=== PATIENT | female | born 1990 | race Hispanic/Latino ===

== ENCOUNTER 2017-08-31 02:52 | Emergency (ER) | payer OTHER ==
--- NOTE | 2017-08-31 03:10 | ED PDOC ---
HPI: Psych/Substance Abuse Time Seen by Provider: 08/31/17 03:00 Chief Complaint (Nursing): Psychiatric Evaluation Chief Complaint (Provider): crisis eval History Per: Patient, EMS History/Exam Limitations: intoxication Additional History Per: Patient, EMS Additional Complaint(s): 26 y/o female brought in by EMS for crisis eval. Patient states after drinking at a bar she went home and used a kitchen knife to cut her wrists because she was "feeling sorry" for herself. Patient states she does not want to . Patient admits to drinking "a lot". Denies suicidal/homicidal ideations, hallucinations, extremity numbness/weakness. Last tetanus vaccine unknown. Past Medical History Reviewed: Historical Data, Nursing Documentation, Vital Signs Vital Signs: Last Vital Signs Temp 98 F 08/31/17 02:58 Pulse 131 H 08/31/17 02:58 Resp 18 08/31/17 02:58 BP 159/136 H 08/31/17 02:58 Pulse Ox 100 08/31/17 02:58 - Medical History PMH: No Chronic Diseases - Surgical History Surgical History: No Surg Hx - Family History Family History: States: No Known Family Hx - Living Arrangements Living Arrangements: Alone - Social History Alcohol: Social - Allergies Allergies/Adverse Reactions: Allergies Allergy/AdvReac Type Severity Reaction Status Date / Time No Known Allergies Allergy Verified 08/31/17 02:58 Review of Systems ROS Statement: Except As Marked, All Systems Reviewed And Found Negative Psych: Positive for: Depression Physical Exam - Reviewed Nursing Documentation Reviewed: Yes Vital Signs Reviewed: Yes - Physical Exam Appears: Positive for: Well, Non-toxic, Uncomfortable (tearful) Head Exam: Positive for: ATRAUMATIC, NORMAL INSPECTION, NORMOCEPHALIC Skin: Positive for: Normal Color Eye Exam: Positive for: Normal appearance ENT: Positive for: Normal ENT Inspection Cardiovascular/Chest: Positive for: Regular Rate, Rhythm Respiratory: Positive for: Normal Breath Sounds Pulses-Radial (L): 2+ Pulses-Radial (R): 2+ Back: Positive for: Normal Inspection Extremity: Positive for: Normal ROM, Capillary Refill, Other (multiple superficial abrasions bilateral volar forearms). Negative for: Tenderness, Deformity Neurologic/Psych: Positive for: Alert, Oriented, Other (+aob) - Laboratory Results Result Diagrams: 08/31/17 03:24 08/31/17 03:24 - ECG O2 Sat by Pulse Oximetry: 100 - Progress ED Course And Treament: labs, urine, crisis eval, 1:1 Abrasions cleaned with normal saline, bacitracin applied. Adacel ordered Disposition - Clinical Impression Clinical Impression: Alcohol intoxication, Self-harm - Disposition Disposition: Transfer of Care Disposition Time: 06:00 Condition: STABLE Patient Signed Over To: Jose Ramirez Handoff Comments: pending sobriety, crisis eval
[2017-08-31 03:31] LABS: BASO # 0.1 K/uL (0.0-0.2); BASO % 0.8 % (0.0-2.0); EOS # 0.1 K/uL (0.0-0.7); EOS % 2.2 % (0.0-4.0); HEMATOCRIT 38.5 % (34.0-47.0); LYMPH % 45.6 % (20.0-40.0); MEAN CELL VOLUME 95.4 fl (81.0-99.0); MEAN CORPUSCULAR HEMOGLOBIN 32.2 pg (27.0-31.0); MEAN CORPUSCULAR HGB CONC 33.7 g/dL (33.0-37.0); MEAN PLATELET VOLUME 7.4 fl (7.2-11.7); MONO # 0.3 K/uL (0.0-0.8); MONO % 5.2 % (0.0-10.0); NEUT % 46.2 % (50.0-75.0); NRBC % 0.1 % (0.0-0.0); RED CELL DISTRIBUTION WIDTH 12.8 % (11.5-14.5); WHITE BLOOD COUNT 6.6 K/uL (4.8-10.8)
[2017-08-31 03:56] LABS: ALB/GLOB RATIO 1.5 (1.0-2.1); ALCOHOL SERUM 299 mg/dl (0-10); ALKALINE PHOSPHATASE 54 U/L (38-126); ALT/SGPT 32 U/L (9-52); AST/SGOT 28 U/L (14-36); BILIRUBIN,TOTAL 0.3 mg/dl (0.2-1.3); BLOOD UREA NITROGEN 7 mg/dl (7-17); CALCIUM 9.7 mg/dL (8.4-10.2); CARBON DIOXIDE 24 mmol/L (22-30); CHLORIDE 111 mmol/L (98-107); GFR AFRICAN-AMERICAN > 60; GLUCOSE,RANDOM 138 mg/dL (65-105); POTASSIUM 5.2 MMOL/L (3.6-5.0); SODIUM 148 mmol/l (132-148); TOTAL PROTEIN 7.6 G/DL (6.3-8.2)
[2017-08-31 04:58] LABS: URINE COLOR COLORLESS (YELLOW); URINE GLUCOSE (UA) NEG (Normal)
[2017-08-31 04:59] LABS: RBC URINE 1 /hpf (0-3); URINE BILIRUBIN NEGATIVE (NEGATIVE); URINE BLOOD NEGATIVE (NEGATIVE); URINE KETONE NEGATIVE (NEGATIVE); URINE LEUKOCYTE ESTERASE NEG Leu/uL (Negative); URINE PROTEIN NEGATIVE (NEGATIVE); URINE UROBILINOGEN 0.2 mg/dL (0.2-1.0); WBC URINE 1 /hpf (0-5)
--- NOTE | 2017-08-31 05:56 | ED PDOC ---
- Laboratory Results Result Diagrams: 08/31/17 03:24 08/31/17 03:24 - ECG O2 Sat by Pulse Oximetry: 100 (RA) Pulse Ox Interpretation: Normal Medical Decision Making Medical Decision Making: Receiving sign out: Patient signed out to me by Kinza Kuo PA-C at 0600 pending clinical sobriety and crisis evaluation. Scribe Attestation: Documented by Saritha Zamorano acting as a scribe for Jose Ramirez MD. Provider Attestation: All medical record entries made by the Scribe were at my direction and personally dictated by me. I have reviewed the chart and agree that the record accurately reflects my personal performance of the history, physical exam, medical decision making, and the department course for this patient. I have also personally directed, reviewed, and agree with the discharge instructions and disposition. Disposition - Clinical Impression Clinical Impression: Alcohol intoxication, Self-harm - POA Present On Arrival: None - Disposition Disposition: Transfer of Care Disposition Time: 07:00 Condition: STABLE Forms: [employer] ([place]ian) Patient Signed Over To: Rylan Rosenberg III Handoff Comments: pending sobriety and crisis evaluation Progress Note - Review of Symptoms Events since last encounter: Time: 0700 Patient to be signed out to Dr. Rosenberg pending clinical sobriety and crisis evaluation.
--- NOTE | 2017-08-31 07:05 | ED PDOC ---
- Laboratory Results Result Diagrams: 08/31/17 03:24 08/31/17 03:24 - ECG O2 Sat by Pulse Oximetry: 100 (RA) Medical Decision Making Medical Decision Makinam recd pending sobriety and crisis eval 10am- patient awake, alert clinically sober. Crisis eval performed and denies suicidal ideation at time. Per Dr Justice can be discharged to followup outpt psychiatry. Mom here, wants to take patient home and isnt concerned about suicide risk. Disposition Counseled Patient/Family Regarding: Studies Performed, Diagnosis, Need For Followup, Rx Given - Clinical Impression Clinical Impression: Alcohol intoxication, Self-harm - POA Present On Arrival: None - Disposition Disposition: Routine/Home Disposition Time: 10:01 Condition: STABLE Additional Instructions: Call your insurance for referral to a psychiatrist. Return to ER for any worse or new symptoms. Instructions: At-Risk Alcohol Use (ED) Forms: [employer] (Wol[place])
[2017-08-31 07:47] VITALS: RESP 20
[2017-08-31 10:15] VITALS: BP 112/78; PULSE 78; TEMP 98; O2SAT 98
== END 2017-08-31 10:18 | disposition home or self-care (01) ==
LOC: H.ER 02:52
DX: F10.129 Alcohol abuse with intoxication, unspecified (principal); S60.811A Abrasion of right wrist, initial encounter; S60.812A Abrasion of left wrist, initial encounter; X78.9XXA Intentional self-harm by unspecified sharp object, initial encounter; Y92.89 Other specified places as the place of occurrence of the external cause